=== PATIENT | male | born 1955 | race Caucasian/White ===

== ENCOUNTER 2024-01-16 08:37 | Outpatient (OUT) | payer BC, SELFPAY ==
--- NOTE | 2024-01-16 08:55 | ECG_ITS ---
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
== END 2024-01-16 08:38 | disposition home or self-care (01) ==
LOC: PST 08:41
PROVIDERS: Visit Provider Orthopaedic Surgery
DX: Z01.810 Encounter for preprocedural cardiovascular examination (principal); G56.02 Carpal tunnel syndrome, left upper limb
CPT/HCPCS: 93005

== ENCOUNTER 2024-01-22 12:01 | Day surgery (SDC) | payer BC, SELFPAY ==
[2024-01-16 08:51] VITALS: BP 178/91; PULSE 60; RESP 18; TEMP 36.3; O2SAT 95; BMI 38.2
[2024-01-22 12:17] VITALS: BP 155/87; PULSE 69; RESP 16; TEMP 36.4; O2SAT 95
--- OUTSIDE RECORDS SUMMARY | 2024-01-22 12:18 | XMS_ITS | CCD ---
Author Name Unknown Address [address] [place] [address] Organization [facility] Care Team Providers Care Repairer Sash And Door Name Role Phone Shaquille Betancourt Primary Care Provider SHAQUILLE BETANCOURT Referring Unavailable SHAQUILLE BETANCOURT Primary Care Unavailable SHAQUILLE BETANCOURT Referring Unavailable SHAQUILLE BETANCOURT Primary Care Unavailable SHAQUILLE BETANCOURT Referring Unavailable SHAQUILLE BETANCOURT Primary Care Unavailable Qiana Gaona Primary Care Physician Qiana Santos Unavailable Unavailable Medications Current Medications Medication Drug Class(es) Dates Sig (Normalized) Sig (Original) calcium chloride 0.0014 meq/ml / potassium chloride 0.004 meq/ml / sodium chloride 0.103 meq/ml / sodium lactate 0.028 meq/ml injectable solution (1 source) Start: 04-20-2020 lactated ringers infusion Fish Oil-Cholecalcifero l (FISH OIL + D3) 6693-7165 MG-UNIT CAPS (5 sources) Fish Oil-Cholecalcifer ol (FISH OIL + D3) 3480-3694 MG-UNIT CAPS Take by mouth 0 Active lisinopril 20 mg oral tablet (5 sources) Angiotensin Converting Enzyme Inhibitor take 1 tablet by mouth once daily lisinopril (PRINIVIL;ZESTRIL ) 20 MG tablet Take 20 mg by mouth daily. 0 Active Multiple Vitamins-Minerals (THERAPEUTIC MULTIVITAMIN-OFFICE CORRESPONDENT ALS) tablet (5 sources) take 1 tablet by mouth once daily Multiple Vitamins-Minerals (THERAPEUTIC MULTIVITAMIN-MINE RALS) tablet Take 1 tablet by mouth daily 0 Active naproxen 500 mg oral tablet (5 sources) Nonsteroidal Anti-inflammatory Drug Start: 02-24-2016 take 1 tablet by mouth twice daily naproxen (NAPROSYN) 500 MG tablet Take 1 tablet by mouth 2 times daily 10 tablet 0 02/24/2016 Active pravastatin sodium 20 mg oral tablet (5 sources) HMG-CoA Reductase Inhibitor take 1 tablet by mouth once daily pravastatin (PRAVACHOL) 20 MG tablet Take 20 mg by mouth nightly 0 Active Completed/Discontinued Medications Medication Drug Class(es) Dates Sig (Normalized) Sig (Original) [id number] 200 actuat albuterol 0.09 mg/actuat metered dose inhaler (1 source) beta2-Adrenergic Agonist Start: 06-01-2022 End: 06-01-2022 albuterol sulfate HFA (PROVENTIL;VENTOLI N;PROAIR) 108 (90 Base) MCG/ACT inhaler 4 puff Start: 06-01-2022 End: 06-01-2022 albuterol sulfate HFA (PROVE NTIL;VENTOLIN;PROAIR) 108 (90 Base) MCG/ACT inhaler 4 puff allopurinol 300 mg oral tablet (6 sources) Xanthine Oxidase Inhibitor take 1 tablet by mouth once daily allopurinol 300 mg tablet take 1 tablet (300 mg) by oral route once daily atorvastatin 40 mg oral tablet (1 source) HMG-CoA Reductase Inhibitor take 1 tablet by mouth once daily at bedtime atorvastatin 40 mg tablet take 1 tablet (40 mg) by oral route once daily at bedtime 120 actuat budesonide 0.08 mg/actuat / formoterol fumarate 0.0045 mg/actuat metered dose inhaler (1 source) Corticosteroid, beta2-Adrenergic Agonist take 2 puff(s) by inhalation twice daily in the morning budesonide-formotero l HFA 80 mcg-4.5 mcg/actuation aerosol inhaler inhale 2 puffs by inhalation route 2 times per day in the morning and evening Fish Oil 300 mg-1,000 mg capsule,delayed release (1 source) take 1 capsule by mouth once daily Fish Oil 300 mg-1,000 mg capsule,delayed release take 1 capsule by oral route daily losartan potassium 50 mg oral tablet (1 source) Angiotensin 2 Receptor Lisa take 1 tablet by mouth once daily losartan 50 mg tablet take 1 tablet (50 mg) by oral route once daily magnesium sulfate 0.0277 meq/ml / potassium sulfate 0.0374 meq/ml / sodium sulfate 0.257 meq/ml oral solution (1 source) Start: 10-08-20 End: 04-20-20 20 Na Sulfate-K Sulfate-Mg Sulf (SUPREP BOWEL PREP KIT) 17.5-3.13-1.6 GM/177ML SOLN Take as directed 2 Bottle 0 10/08/2019 04/20/2020 Discontinued (Stop Taking at Discharge) multivitamin tablet (1 source) take 1 tablet by mouth once daily multivitamin tablet take 1 tablet by oral route daily omeprazole 20 mg delayed release oral capsule (6 sources) Proton Pump Inhibitor take 1 capsule by mouth once daily 1 hour(s) before mealtime omeprazole 20 mg capsule,delayed release take 1 capsule (20 mg) by oral route once daily 30 minutes to 1 hour before a meal Omeprazole 20 MG TBEC Take by mouth. 0 Active Problems Active Problems Problem Classification Problem Date Documented Da te Episodic/Chronic Essential hypertension (1 source) Essential (primary) hypertension Chronic Other connective tissue disease (1 source) Pain in right arm Onset: 12-11-2023 Episodic Other connective tissue disease (1 source) Pain in left arm Onset: 12-11-2023 Episodic Other lower respiratory disease (2 sources) Cough; Translations: [Acute cough] Episodic Other lower respiratory disease (2 sources) Dyspnea; Translations: [Dyspnea, unspecified] Episodic Other lower respiratory disease (2 sources) Wheezing; Translations: [Wheezing] Episodic Other nervous system disorders (1 source) Other disturbances of skin sensation Onset: 12-11-2023 Episodic Unclassified (3 sources) Patient encounter status; Translations: [Colon cancer screening] Onset: 09-03-2015 04-17-2020 Past or Other Problems Problem Classification Problem Date Documented Da te Episodic/Chronic Fracture of upper limb (5 sources) Open fracture thumb distal phalanx; Translations: [Nondisplaced fracture of distal phalanx of left thumb, initial encounter for open fracture] Onset: 03-01-2013 03-01-2013 Episodic Other and unspecified benign neoplasm (6 sources) History of polyp of colon; Translations: [Personal history of colonic polyps] Onset: 10-08-2019 04-17-2020 Episodic Other screening for suspected conditions (not mental disorders or infectious disease) (3 sources) Patient encounter status; Translations: [Encounter for screening for malignant neoplasm of colon] Onset: 09-03-2015 Resolved: 05-17-2020 05-17-2020 Episodic Results Test Name Value Interpretation Reference Range Facility No Panel Informationon 12-11 Tobacco smoking status Non-Smoker Invalid Interpretation Code [facility] No Panel Informationon 11-17 Tobacco smoking status Non-Smoker Invalid Interpretation Code [facility] PULMONARY FUNCTION (450)on 0 06-05-2022 PULMONARY FUNCTION (450) [address] [id number] PULMONARY FUNCTION PATIENT NAME: HUMBERTO NVAARRO : 1955 MED REC NO: [id number] ROOM: ACCOUNT NO: [id number] ADMIT DATE: 06/01/2022 PROVIDER: Vladimir Rees DATE OF PROCEDURE: 06/01/2022 FINDINGS: The patient's spirometry shows an obstructive pattern. FEV1 is 67% of predicted with 6% change to 72% of predicted. FEV1/FVC ratio is 69, postbronchodilator 73. FVC is 72% of predicted with 2% change to 73% of predicted. Total lung capacity by body box is 86% of predicted and RV is 81% of predicted. Diffusion capacity uncorrected is 65% of predicted and corrected for alveolar volume is 89% of predicted. Airway resistance is normal. FINAL IMPRESSION: This study shows obstructive lung disease with a 6% bronchodilator change -- this does not meet ATS criteria, but clinical trial is recommended. Lung volumes are normal. Diffusion capacity is mildly decreased, which could be due to underlying emphysema, interstitial lung disease, pulmonary vascular disease, or anemia. Clinical correlation is advised. VLADIMIR REES [id number] Doc#: [id number] CC: Shaquille Betancourt DO Normal [facility] XR CHEST (2 VW)on 05-18-2022 XR CHEST (2 VW) EXAMINATION: TWO XRAY VIEWS OF THE CHEST 05/18/2022 4:03 pm COMPARISON: September 02, 2016 HISTORY: ORDERING SYSTEM PROVIDED HISTORY: Acute cough TECHNOLOGIST PROVIDED HISTORY: cough, dyspnea, wheezing FINDINGS: The lungs are without acute focal process. There is no effusion or pneumothorax. The cardiomediastinal silhouette is without acute process. The osseous structures are without acute process. IMPRESSION: No acute process. Interpreted by: Edouard Alcaraz DO Signed by: Edouard Alcaraz DO 05/18/22 Final result Normal [facility] No acute process. [facility] EXAMINATION: TWO XRAY VIEWS OF THE CHEST 05/18/2022 4:03 pm COMPARISON: September 02, 2016 HISTORY: ORDERING SYSTEM PROVIDED HISTORY: Acute cough TECHNOLOGIST PROVIDED HISTORY: cough, dyspnea, wheezing FINDINGS: The lungs are without acute focal process. There is no effusion or pneumothorax. The cardiomediastinal silhouette is without acute process. The osseous structures are without acute process. [facility] Edouard Alcaraz DO - 05/18/2022 EXAMINATION: TWO XRAY VIEWS OF THE CHEST 05/18/2022 4:03 pm COMPARISON: September 02, 2016 HISTORY: ORDERING SYSTEM PROVIDED HISTORY: Acute cough TECHNOLOGIST PROVIDED HISTORY: cough, dyspnea, wheezing FINDINGS: The lungs are without acute focal process. There is no effusion or pneumothorax. The cardiomediastinal silhouette is without acute process. The osseous structures are without acute process. IMPRESSION: No acute process. [facility] Work Phone: Radiology Study observation (narrative) [facility] Phone: XR CHEST (2 VW)Ordered By: Isha Alcaraz on 05-18-2022 [facility]: Colonoscopyon 04-20-2020 No dictation [place], [place] No Panel Informationon 04-20 Colonoscopy Invalid Interpretation Code [facility] COVID-19on 04-18-2020 SARS-CoV-2 [place], [place] SARS-CoV-2, PCR Not Detected Not Detected [place], [place] Comment on above: (NOTE) The [employer] Real[employer] SARS-CoV-2 assay is a real-time (rt) reverse transcriptase (RT) polymerase chain reaction (PCR) test intended for the [employer] system. The SARS-CoV-2 primer and probe sets are designed to detect RNA from SARS-CoV-2 in nasopharyngeal (COMPUTERIZED TABLE CUTTER) and oropharyngeal (OP) swabs from patients with signs and symptoms of infection who are suspected of COVID-19. Results are for the identification of SARS-CoV-2 RNA. The SARS-CoV-2 RNA is generally detectable in a nasopharyngeal and oropharyngeal swabs during the acute phase of infection. The [employer] RealTime SARS-CoV-2 assay is intended for use by qualified and trained clinical laboratory personnel specifically instructed and trained in the techniques of real-time PCR and in vitro diagnostic procedures. The [employer] RealTime SARS-CoV-2 assay is only for use under the Food and Drug Administration Emergency Use Authorization. Testing is limited to laboratories certified under the Clinical Laboratory Improvement Amendments of 1988 (CLIA), 42 U.S.C. 263a, to perform high complexity tests. Not Detected: Not detected does not preclude SARS-CoV-2 infection and should not be used as the sole basis for patient management decisions. Not detected results must be combined with clinical observations, patient history, and epidemiological information. The above 1 analytes were performed by [address] [place] [address] SARS-CoV-2, Rapid [place], [place] Source .NASOPHARYNGEAL SWAB [place] Vital Signs Date Time Vital Sign Value Performing Clinician Facility 12-11-2023 14:19050 Body height 184.91 cm [facility] 12-11-2023 14:19050 Body mass index (BMI) [Ratio] 37.81 kg/m2 [facility] 12-11-2023 14:19050 Body surface area Derived from formula 2.58 m2 [facility] 12-11-2023 14:19050 Body weight 129.28 kg [facility] 12-11-2023 14:19050 Diastolic blood pressure 82 mm[Hg] [facility] 12-11-2023 14:19-0500 Heart rate 76 /min [facility] 12-11-2023 14:19-0500 Systolic blood pressure 140 mm[Hg] Qiana Gaona [facility] 04-20-2020 10:15-0400 Body Temperature 98.1 [degF] Mayito Batista [facility], [place] 04-20-2020 10:15-0400 BP Diastolic 75 mm[Hg] Mayito [place] 04-20-2020 10:15-0400 BP Systolic 130 mm[Hg] Mayito [place] 04-20-2020 10:15-0400 Pulse (Heart Rate) 84 /min [place], [place] 04-20-2020 10:15-0400 Pulse Oximetry 96 % Mayito [facility] , [place] 04-20-2020 10:15-0400 Respiratory Rate 18 /min [place] 04-20-2020 08:59-0400 BMI (Body Mass Index) 34.96 kg/m2 Mayito Batista [facility], [place] 04-20-2020 08:59-0400 Body weight 120.2 kg Mayito [place] 04-20-2020 08:59-0400 Height 185.4 cm [place], [place] Encounters Encounter Date Encounter Type Care Provider Facility Start: 12-11-2023 Split Srvc Qiana Ham rne Other [facility] Start: 06-01-2022 End: 06-02-2022 ambulatory SHAQUILLE BETANCOURT [facility] Start: 06-01-2022 End: 06-01-2022 Subsequent hospital visit by physician [facility] Pulmonary Function Room [facility] Comment on above: Acute cough; Dyspnea, unspecified type; Wheezing Start: 05-18-2022 End: 05-21-2022 ambulatory SHAQUILLE BETANCOURT [facility] Start: 05-18-2022 End: 05-20-2022 Subsequent hospital visit by physician [facility] Radiology Comment on above: Acute cough; Dyspnea, unspecified type; Wheezing Start: 04-20-2020 End: 04-20-2020 Subsequent hospital visit by physician Mayito Batista Work Phone: [facility] Start: 04-16-2020 End: 04-20-2020 Subsequent hospital visit by physician [facility] Covid19 Pat Screening Schedule [facility] PRE ADMIT Procedures Date Procedure Procedure Detail Performing Clinician Start: 12-11-2023 Nerve conduction adolfo dies 9-10 studies Qiana Gaona Start: 06-01-2022 Brncdilat rspse spmt ry pre&post-brncdilat admn Shaquille Betancourt DO Work Phone: Start: 05-18-2022 Radiologic exam ches t 2 views Shaquille Betancourt DO Work Phone: Start: 04-20-2020 COLONOSCOPY PROCEDURE S jaimee Batista Work Phone: Start: 04-20-2020 Colonoscopy Shaquille mcfadden DO Work Phone: Start: 04-16-2020 COVID-19 Marcus vanessa Work Phone: Plan of Treatment Date Care Activity Detail Author Start: 04-20-2025 Screening for malign ant neoplasm of colon [facility] Start: 07-07-2022 Influenza vaccination Flu vaccine (# 1) [facility] Start: 06-01-2022 End: 06-01-2022 Patient encounter procedure 06/01/2022 Appointment Pulmonary Function Testing [facility] Start: 10-05-2020 Screening for malign ant neoplasm of colon Colon cancer screen colonoscopy [place], [place] Start: 2020 Pneumococcal 65+ yea rs Vaccine (1 - PCV) Pneumococcal 65+ years Vaccine (1 - PCV) [facility] Start: 07-07-2020 Influenza vaccination Flu vacc ine (Season Ended) [place], [place] Start: 06-01-2013 Creatinine measurement Creatinine mo [place]itoring [place] Start: 06-01-2013 Lipid panel [facility] Start: 06-01-2013 Potassium monitoring Potassium monit oring [place] Start: 03-01-2013 DTaP/Tdap/Td vaccine (1 - Tdap) DTaP/Tdap/Td vaccine (1 - Tdap) [facility] Start: 10-08-2012 Prostate specific an tigen measurement Prostate Specific Antigen (PSA) Screening or Monitoring [facility] Start: 2005 Shingles Vaccine (1 of 2) Cruz gles Vaccine (1 of 2) [place], [place] Start: 2000 Screening for malign ant neoplasm of colon [facility] Start: 1974 DTaP/Tdap/Td vaccine (1 - Tdap) DTaP/Tdap/Td vaccine (1 - Tdap) [place], [place] Start: 1973 Hepatitis C screening Hepatitis C [facility] Start: 1970 HIV screening HIV screen [place], [place] Start: 1967 Depression Screen Depression Screen [facility] Start: [birth year]-07-1956 COVID-19 Vaccine (#1) COVID-19 Vacci ne (#1) [facility] Start: 1955 Hepatitis C screening Hepatitis C sc [place], [place] Immunizations Immunization Date Immunization Notes Care Provider Mckenzie galvin 08-06-2023 COVID-19, Moderna, 100mcg/0.5ml Qiana Petenko 08-06-2023 influenza, injectabl e, quadrivalent, contains preservative Qiana Petenko 02-28-2013 Td, unspecified formulation Mayito Batista [facility] Payers Date Payer Category Payer Private Health Insurance [id number] 2019 Unknown BCBS BCBS - [place] P PO xxxxxxxxxxxx 2019-Present [address] [place] [address] xxxxxxxxxxxx [id number] 1955 Unknown [id number] 1955 Unknown [id number] 1955 Unknown [id number] Unknown [id number] Social History Date Type Detail Facility Start: 02-28-2013 End: 04-20-2020 Tobacco smoking status NHIS Never smoker [place] Start: 04-20-2020 End: 04-27-2020 Alcohol intake Current drinker of alcohol (finding) [place] Start: 02-28-2013 Alcohol Comment social [place] Start: 1955 Sex Assigned At Not on file [place] Exposure to SARS-CoV -2 (event) Unable to assess [place], [place] Start: 02-28-2013 Tobacco use and exposure Smokeless tobacco non-user [facility] M[facility] Phone: Start: *Tobacco [facility] Start: Alcohol [facility] Evaluation note Note Date & Type Note Facility Evaluation note Diagnosis Acute cough Dyspnea, unspecified type Wheezing [facility] Evaluation note Note Date & Type Note Facility Evaluation note Diagnosis Acute cough Dyspnea, unspecified type Wheezing documented in this encounter [facility] Phone: Discharge Instructions * Instructions* Nancy Barone RN - 04/20/2020 COLONOSCOPY DISCHARGE INSTRUCTIONS: It's normal to have a feeling of fullness or mild cramping in your abdomen afterwards due to air that is put into your bowel during the procedure. Mild activities such as walking will help you pass the air. You may resume your regular diet. CALL THE DOCTOR IF YOU HAVE: Chest pain or trouble breathing. Bleeding from your rectum, vomiting or spitting up of blood that is more than a few streaks or red or black stools A fever above 101F or if you have chills Pain that is worse or different than any pain you had before the procedure Nausea or vomiting that lasts for more than 2 hours. If symptoms are to severe call 911 or go to the nearest Emergency Room. See me in the office as needed. Current guidelines call for a repeat colonoscopy in 5 years. Call the GI clinic at if you have a problem or question. documented in this encounter History of Present Illness * Nancy Barone RN - 04/20/2020 10:23 AM EDT Discharge Criteria Inpatients must meet Criteria 1 through 7. All other patients are either YES or N/A. If a NO is chosen then Anesthesia or Surgeon must be notified. 1. Minimum 30 minutes after last dose of sedative medication, minimum 120 minutes after last dose of reversal agent. Yes 2. Systolic BP stable within 20 mmHg for 30 minutes & systolic BP between 90 & 180 or within 10 mmHg of baseline. Yes 3. Pulse between 60 and 100 or within 10 bpm of baseline. Yes 4. Spontaneous respiratory rate >/= 10 per minute. Yes 5. SaO2 >/= 95 or >/= baseline. Yes 6. Able to cough and swallow or return to baseline function. Yes 7. Alert and oriented or return to baseline mental status. Yes 8. Demonstrates controlled, coordinated movements, ambulates with steady gait, or return to baseline activity function. Yes 9. Minimal or no pain or nausea, or at a level tolerable and acceptable to patient. Yes 10. Takes and retains oral fluids as allowed. Yes 11. Procedural / perioperative site stable. Minimal or no bleeding. Yes 12. If GI endoscopy procedure, minimal or no abdominal distention or passing flatus. Yes 13. Written discharge instructions and emergency telephone number provided. Yes 14. Accompanied by a responsible adult. Yes * Nancy Barone RN - 04/20/2020 10:23 AM EDT Discharge instructions given to patient and patient ; verbalizes understanding and offers no questions at this time. 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 Advance Directives and Living Will Power of Checkout Operator Documents on File Type Date Recorded Patient Head [employer] Coach Expl anation Advance Directives and Living Will Power of Checkout Operator Reason for Referral Specialty Diagnoses / Procedures Referred By Contac t Referred To Contact Diagnoses Acute cough Dyspnea, unspecified type Wheezing Procedures Full PFT Study With Bronchodilator Shaquille Betancourt, DO [address] [place] [id number] Referral ID Status Reason Start Date Expiration Date V isits Requested Visits Authorized [id number] Pending Review 04/29/2022 04/29/2023 1 1 Summary Purpose Family History No Family History Records Found Additional Source Comments Reason for Visit (unrecogniz ed section and content) Status Reason Specialty Diagnoses / Procedures Referre d By Contact Referred To Contact Diagnoses Hx of colonic polyps Encounter for screening for malignant neoplasm of colon HX OF COLON POLYPS, COLON CANCER SCREENING Procedures [place] COLORECTAL SCRN; HI RISK IND COLORECTAL CANCER SCREENING, HIGH RISK Mayito Batista MD [address] [place] [address] [place] [address] [facility] Specialty Diagnoses / Procedures Referred By Contac t Referred To Contact Diagnoses Acute cough Dyspnea, unspecified type Wheezing Procedures Full PFT Study With Bronchodilator Shaquille Betancourt, DO [address] [place] [id number] Referral ID Status Reason Start Date Expiration Date V isits Requested Visits Authorized [id number] Pending Review 04/29/2022 04/29/2023 1 1 Care Teams (unrecognized sec tion and content) Repairer Sash And Door Relationship Specialty Start Date End Date Shaquille Betancourt, [address] [phone] PCP - General 02/28/13 Repairer Sash And Door Relationship Specialty Start Date End Date Shaquille Betancourt, DO [address] [place] [address] PCP - General 02/28/13 Repairer Sash And Door Relationship Specialty Start Date End Date Shaquille Betancourt, DO [address] [place] [address] PCP - General 02/28/13 (unrecognized sect ion and content) No Status Records Found INFORMATION SOURCE (unrecogn ized section and content) DATE CREATED AUTHOR 06/07/2022 Ele Singh Omari minaya FOR RECORDS PERTAINING TO PATIENTS WHO ARE OR HAVE BEEN ENROLLED IN A CHEMICAL DEPENDENCY/SUBSTANCEABUSE PROGRAM, SOME INFORMATION MAY BE OMITTED. This clinical summary was aggregated from multiple sources. Caution should be exercised in using it in the provision of clinical care. This summary normalizes information from multiple sources, and as a consequence, information in this document may materially change the coding, format and clinical context of patient data. In addition, data may be omitted in some cases. CLINICAL DECISIONS SHOULD BE BASED ON THE PRIMARY CLINICAL RECORDS. [facility] [employer] provides no warranty or guarantee of the accuracy or completeness of information in this document.
[2024-01-22] MEDS: LACTATED RINGER'S SOLUTION 1,000 ML 50 ML IV (12:32)
[2024-01-22] MEDS: CEFAZOLIN SODIUM/DEXTROSE,ISO 2 GM/50 ML PIGGYBACK IV (13:33)
[2024-01-22] MEDS: LIDOCAINE HCL 1%-EPINEPHRINE 1:100,000 10 ML MDV 5 ML INJ (13:59)
[2024-01-22] MEDS: BUPIVACAINE HCL 0.5% PF 50 MG/10 ML VIAL 5 ML INJ (13:59)
[2024-01-22 14:17] VITALS: BP 145/100; PULSE 71; RESP 16; TEMP 36.3
[2024-01-22 14:35] VITALS: BP 135/87; PULSE 66; RESP 16; O2SAT 94
--- NOTE | 2024-01-22 14:36 | PC.NURSE ---
Left fingers pink and warm; moving fingers without difficulty; extremity elevated above heart level after orion assisted to chair
--- NOTE | 2024-01-22 15:03 | PC.NURSE ---
others fingers on left hand normal sensation
--- NOTE | 2024-01-22 16:13 | PM.ORPRC ---
Procedure Note Date of procedure: 01/22/24 Pre-op diagnosis: Left carpal tunnel syndrome Post-op diagnosis: same as pre-op Procedure: Preoperative Diagnosis: Left carpal tunnel syndrome Postoperative Diagnosis: Same Procedure: Left endoscopic carpal tunnel release Surgeon: Ursula Anesthesia: Local with MAC Estimated blood loss:Minimal Tourniquet time: 4 Minutes at 250 mmHg Complications: None Indications for Surgery: The patient has had signs and symptoms of carpal tunnel syndrome that have failed conservative treatment. Options were discussed with the patient as well as risks and benefits and they have elected to proceed with the surgery. Operative procedure: Prior to surgery the patient received IV antibiotics. The operative extremity was marked preoperatively. After informed consent was obtained the patient was brought to the operating room where MAC anesthesia was administered. Preoperatively 5 mm 0.5% Marcaine plain with 5 mm 1% lidocaine with epinephrine were infiltrated in the operative sight. The arm was then prepped and draped in the usual sterile fashion after placement of a well padded tourniquet. The arm was elevated, exsanguinated, and the tourniquet was inflated. A 1 cm incision was then made in a preexisting distal wrist crease. Hemostasis was achieved with bipolar electrocautery. Blunt dissection was then carried down to the forearm fascia where a U-based flap was created. Proximally the fascia was incised for 2 cm under direct visualization. Attention was then turned to the endoscopic carpal tunnel release. The synovial elevator was used to clear the underside of the transverse carpal ligament of soft tissue. Sequential dilators were then placed. The endoscopic carpal tunnel released instrument was then placed. The transverse fibers were then identified and release from distal to proximal. The ligament was completely release. The tourniquet was deflated and hemostasis was achieved. The wound was irrigated and closed with a nylon suture. A sterile dressing was placed. The patient was brought to the recovery room. There were no preoperative or postoperative complications. Anesthesia: MAC and local Surgeon: Mayito Vergara Estimated blood loss (mL): 1 Pathology: none sent Condition: stable Disposition: PACU
== END 2024-01-22 14:50 | disposition home or self-care (01) ==
PROVIDERS: Visit Provider Orthopaedic Surgery
PROC: (CPT 1810; principal; 2024-01-22 13:00)
DX: G56.02 Carpal tunnel syndrome, left upper limb (principal); I11.0 Hypertensive heart disease with heart failure; M10.9 Gout, unspecified; R20.2 Paresthesia of skin
CPT/HCPCS: 29848; J1094; J2704